=== PATIENT | male | born 1995 | race American Indian/Alaskan Native ===

== ENCOUNTER 2016-12-27 22:22 | Emergency (ER) | payer SELFPAY ==
[2016-12-27 22:40] VITALS: RESP 16; TEMP 99.2; O2SAT 98
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
[2016-12-28 05:51] VITALS: BP 116/74; PULSE 82
== END 2016-12-28 02:01 | disposition home or self-care (01) ==
LOC: ED 22:22
DX: R51 Headache (principal)